=== PATIENT | female | born 1950 | race Caucasian/White ===

== ENCOUNTER → 2017-04-02 | Outpatient (CLI) | payer MEDICARE, OTHER ==
[2017-04-02 12:54] LABS: AUTOMATED NEUTROPHIL # 4.4 TH/MM3 (1.8-7.7); BASOPHIL % 0.6 % (0.0-2.0); EOSINOPHIL # 0.1 TH/MM3 (0-0.4); EOSINOPHIL % 1.2 % (0.0-4.0); HEMATOCRIT 42.1 % (35.0-46.0); HEMO FLAGS DIFF FINAL; LYMPH % 25.7 % (9.0-44.0); LYMPHOCYTE # 1.7 TH/MM3 (1.0-4.8); MEAN CELL VOLUME 85.7 FL (80.0-100.0); MEAN CORPUSCULAR HEMOGLOBIN 27.7 PG (27.0-34.0); MEAN CORPUSCULAR HGB CONC 32.3 % (32.0-36.0); MONO % 4.6 % (0.0-8.0); NEUT % 67.9 % (16.0-70.0); PLATELET COUNT 284 TH/MM3 (150-450); RED BLOOD COUNT 4.92 MIL/MM3 (4.00-5.30); RED CELL DISTRIBUTION WIDTH 14.1 % (11.6-17.2); WHITE BLOOD COUNT 6.5 TH/MM3 (4.0-11.0)
[2017-04-02 13:26] LABS: ALT (GPT) 24 U/L (10-53); ANION GAP 7 MEQ/L (5-15); AST (GOT) 24 U/L (15-37); BICARBONATE 28.6 MEQ/L (21.0-32.0); BLOOD UREA NITROGEN 15 MG/DL (7-18); CHLORIDE 106 MEQ/L (98-107); GLOMERULAR FILTRATION RATE 93 ML/MIN (>89); SODIUM (NA) 142 MEQ/L (136-145)
[2017-04-02 13:36] LABS: ALKALINE PHOSPHATASE 85 U/L (45-117); FREE T3 1.51 PG/ML (2.18-3.98); FREE T4 0.76 NG/DL (0.76-1.46); TOTAL BILIRUBIN ADULT 0.3 MG/DL (0.2-1.0)
== END ==
LOC: PLAB 10:59
DX: E05.90 Thyrotoxicosis, unspecified without thyrotoxic crisis or storm (principal)
CPT/HCPCS: 36415; 80053; 84439; 84443; 84481; 85025

== ENCOUNTER → 2017-11-08 | Outpatient (CLI) | payer MEDICARE, OTHER ==
[2017-11-08 10:36] LABS: HDL CHOLESTEROL 78.1 MG/DL (40.0-60.0); LDL CHOLESTEROL 131 MG/DL (0-99)
[2017-11-08 11:43] LABS: HEMOGLOBIN A1a 1.3 %; HEMOGLOBIN A1b 0.9 %; HEMOGLOBIN F 1.5 %; HEMOGLOBIN P3 3.6 %
[2017-11-10 17:53] LABS: STRIATED MUCLE AB TITER ND (<1:40)
[2017-11-10 19:51] LABS: ACETYLCHOLINE REC BINDING LESS THAN 0.30 nmol/L
== END ==
LOC: PLAB 07:10
PROVIDERS: ATTEND Psychiatry & Neurology Neurology
DX: I63.9 Cerebral infarction, unspecified (principal); H53.2 Diplopia
CPT/HCPCS: 36415; 80061; 82607; 83036; 83519; 84207; 85652; 86140; 86255

== ENCOUNTER → 2017-11-12 | Outpatient (CLI) | payer MEDICARE, OTHER ==
[2017-11-12 09:50] LABS: FREE T3 2.52 PG/ML (2.18-3.98); FREE T4 1.54 NG/DL (0.76-1.46)
== END ==
LOC: PLAB 07:22
DX: E05.90 Thyrotoxicosis, unspecified without thyrotoxic crisis or storm (principal); E03.9 Hypothyroidism, unspecified; E89.0 Postprocedural hypothyroidism
CPT/HCPCS: 36415; 84439; 84443; 84481

== ENCOUNTER → 2017-11-21 | Outpatient (CLI) | payer MEDICARE, OTHER ==
[2017-11-21 13:49] LABS: FREE T3 3.27 PG/ML (2.18-3.98); FREE T4 1.54 NG/DL (0.76-1.46)
== END ==
LOC: PLAB 09:07
DX: E05.90 Thyrotoxicosis, unspecified without thyrotoxic crisis or storm (principal); E89.0 Postprocedural hypothyroidism
CPT/HCPCS: 36415; 84439; 84443; 84481

== ENCOUNTER → 2017-12-14 | Outpatient (CLI) | payer MEDICARE, OTHER ==
[2017-12-14 13:56] LABS: FREE T3 2.64 PG/ML (2.18-3.98)
[2017-12-14 13:56] LABS: FREE T4 1.54 NG/DL (0.76-1.46)
== END ==
LOC: PLAB 08:13
DX: E05.90 Thyrotoxicosis, unspecified without thyrotoxic crisis or storm (principal)
CPT/HCPCS: 36415; 84439; 84443; 84481

== ENCOUNTER → 2018-02-20 | Outpatient (CLI) | payer MEDICARE, OTHER ==
[2018-02-20 11:21] LABS: FREE T3 2.05 PG/ML (2.18-3.98); FREE T4 0.99 NG/DL (0.76-1.46)
== END ==
LOC: PLAB 08:21
DX: E05.90 Thyrotoxicosis, unspecified without thyrotoxic crisis or storm (principal); E89.0 Postprocedural hypothyroidism
CPT/HCPCS: 36415; 84439; 84443; 84481